=== PATIENT | female | born 1950 | race American Indian/Alaskan Native ===

== ENCOUNTER 2024-03-13 07:54 | Day surgery (SDC) | payer MEDICAID ==
[~2024-03-13] VITALS: Ht 160 cm; Wt 90.7 kg
[~2024-03-13 07:54] MED LIST: ACET1TAB55 PO; ASPI81TA26 PO; ATOR1TAB19 PO; GABA-1171 PO; INSUDET SC; ISOS30TAB PO; LORA-243 PO; METO1TAB32 PO; PANT40TA29 PO; PROA1AER2 IN; RENATAB5 PO; RENV2TAB PO; TREL1AER IN; VITA-243 PO; VITA100093 PO; long acting insulin SC; propofoL 200 MG/20 ML VIAL As Ordered ONE; short acting insulin SC
[2024-03-13] MEDS: NS 250 ML IV ONE (08:58)
[2024-03-13] MEDS ORDERED: ePHEDrine INJ 50MG/ML 1ML VIAL As Ordered ONE (10:17)
[2024-03-13 10:21] VITALS: TEMP 97.7
[2024-03-13 10:43] VITALS: BP 100/49; O2SAT 100
== END 2024-03-13 10:48 | disposition home or self-care (01) ==
LOC: M OPP 07:54
PROVIDERS: ATTEND Internal Medicine Gastroenterology
DX: K57.31 Diverticulosis of large intestine without perforation or abscess with bleeding (principal); D12.2 Benign neoplasm of ascending colon; D12.3 Benign neoplasm of transverse colon; K64.8 Other hemorrhoids; Z86.0100 Personal history of colon polyps, unspecified